=== PATIENT | female | born 1995 | race Two or more races ===

== ENCOUNTER 2018-02-23 11:32 | Outpatient (CLI) | payer OTHER ==
--- NOTE | 2018-02-23 17:48 | Diagnostic Imaging Report ---
SILVIA MULLER [facility] [address] [facility] [address] [address] Report Submission Date: Feb 23, 2018 12:44:10 PM CDT Patient Study Name: MELISSA ROSE Date: Feb 23, 2018 11:42:56 AM CDT Modality Type: DX Gender: F Description: SHOULDER : 89 Institution: [facility] Physician: SILVIA MULLER Examination: Plain film left shoulder History: SHOULDER PAIN: POPPING OUT OF PLACE PAIN FROM SHOULDER TO ELBOW X 3YRS (Hx) Comparison exams: None provided Findings: 4 views of the left shoulder demonstrate normal cortical margins. No evidence for fracture or dislocation. Early acromioclavicular joint spurring. No soft tissue abnormality Impression: No acute osseous process. Given patient's reported symptoms, consider obtaining MRI shoulder to further evaluate soft tissue structures. Electronically signed on Feb 23, 2018 12:44:10 PM CDT by: Hugo HI
== END 2018-02-23 11:33 ==
LOC: RAD 11:32
PROVIDERS: ATTEND Family Medicine
DX: M25.512 Pain in left shoulder (principal)
CPT/HCPCS: 73030